=== PATIENT | female | born 1945 | race Caucasian/White ===

== ENCOUNTER 2016-09-18 22:59 | Inpatient (IN) | payer MEDICARE ==
[~2016-09-18] VITALS: Ht 162.6 cm; Wt 75.0 kg
[2016-09-18 22:59] VITALS: O2SAT 98
[2016-09-18] MEDS ORDERED: ceFAZolin 2 GM PREMIX 50 ML ONE (23:01)
[2016-09-18] MEDS ORDERED: ceFAZolin 2 GM PREMIX 50 ML IV STA (23:16)
[2016-09-18] MEDS ORDERED: DIPHTH/TETANUS/ACEL PERTUSSIS (BOOSTER) 0.5 ML VIAL/PFS IM ONE (23:16)
[2016-09-18 23:22] LABS: AUTOMATED NEUTROPHIL # 4.6 TH/MM3 (1.8-7.7); BASOPHIL # 0.1 TH/MM3 (0-0.2); BASOPHIL % 1.2 % (0.0-2.0); EOSINOPHIL # 0.2 TH/MM3 (0-0.4); EOSINOPHIL % 2.5 % (0.0-4.0); HEMATOCRIT 42.9 % (35.0-46.0); HEMO FLAGS DIFF FINAL; LYMPH % 30.9 % (9.0-44.0); LYMPHOCYTE # 2.5 TH/MM3 (1.0-4.8); MEAN CELL VOLUME 94.8 FL (80.0-100.0); MEAN CORPUSCULAR HEMOGLOBIN 32.9 PG (27.0-34.0); MEAN CORPUSCULAR HGB CONC 34.7 % (32.0-36.0); MONO % 8.1 % (0.0-8.0); NEUT % 57.3 % (16.0-70.0); PLATELET COUNT 240 TH/MM3 (150-450); RED BLOOD COUNT 4.52 MIL/MM3 (4.00-5.30); RED CELL DISTRIBUTION WIDTH 13.9 % (11.6-17.2)
[2016-09-18 23:26] LABS: I-STAT POTASSIUM 3.8 MMOL/L (3.5-4.9)
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
[2016-09-18] MEDS ORDERED: MORPHINE SULFATE 4 MG/ML INJ IV PRN (23:30)
[2016-09-18] MEDS ORDERED: MAGNESIUM HYDROXIDE SUSP 30 ML CUP PO PRN (23:30)
[2016-09-18] MEDS ORDERED: SODIUM CHLORIDE 0.9% FLUSH 5 ML FLUSH IVF PRN (23:30)
[2016-09-18] MEDS ORDERED: CHLORHEXIDINE GLUCONATE 2 % 1 PACK (2 CLOTHS) TOP PRN (23:30)
[2016-09-18] MEDS ORDERED: MISCELLANEOUS NURSING INFORMATION XX SCH (23:30)
[2016-09-18] MEDS ORDERED: ONDANSETRON HCL 4 MG/2 ML VIAL IV PRN (23:30)
[2016-09-18] MEDS ORDERED: MULTCAP2 PO (23:33)
[2016-09-18] MEDS ORDERED: ZANT150T2 PO (23:33)
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
[2016-09-18 23:38] LABS: APTT (PATIENT) 19.8 SEC (24.3-30.1); PROTHROMBIN TIME - PATIENT 11.4 SEC (9.8-11.6)
[2016-09-18 23:39] VITALS: BP 171/77; PULSE 73; RESP 20; TEMP 97.9; O2SAT 98
[2016-09-19 01:12] VITALS: BP 165/76; PULSE 78; RESP 20; TEMP 98; O2SAT 98
[2016-09-19 04:00] VITALS: BP 178/84; PULSE 88; RESP 20; TEMP 97.6; O2SAT 97
[2016-09-19] MEDS ORDERED: CHLORHEXIDINE GLUCONATE 2 % 1 PACK (2 CLOTHS) TOP SCH (04:00)
[2016-09-19 04:59] LABS: AUTOMATED NEUTROPHIL # 5.7 TH/MM3 (1.8-7.7); BASOPHIL % 0.3 % (0.0-2.0); EOSINOPHIL # 0.2 TH/MM3 (0-0.4); EOSINOPHIL % 1.9 % (0.0-4.0); HEMATOCRIT 38.4 % (35.0-46.0); HEMO FLAGS DIFF FINAL; LYMPH % 28.7 % (9.0-44.0); LYMPHOCYTE # 2.8 TH/MM3 (1.0-4.8); MEAN CELL VOLUME 95.3 FL (80.0-100.0); MEAN CORPUSCULAR HEMOGLOBIN 32.1 PG (27.0-34.0); MEAN CORPUSCULAR HGB CONC 33.7 % (32.0-36.0); MONO % 9.8 % (0.0-8.0); NEUT % 59.3 % (16.0-70.0); PLATELET COUNT 218 TH/MM3 (150-450); RED BLOOD COUNT 4.02 MIL/MM3 (4.00-5.30); RED CELL DISTRIBUTION WIDTH 13.5 % (11.6-17.2); WHITE BLOOD COUNT 9.6 TH/MM3 (4.0-11.0)
[2016-09-19 05:29] LABS: BICARBONATE 23.5 MEQ/L (21.0-32.0); POTASSIUM 3.7 MEQ/L (3.5-5.1)
[2016-09-19] MEDS: ENOXAPARIN SODIUM 30 MG/0.3 ML SYRINGE SQ SCH ×2 (05:58→17:44)
[2016-09-19 08:00] VITALS: BP 127/66; PULSE 81; RESP 17; TEMP 98.6; O2SAT 93
[2016-09-19] MEDS: DOCUSATE SODIUM 50 MG/SENNA 8.6 MG TAB PO SCH ×2 (08:29→20:11)
[2016-09-19] MEDS ORDERED: PANTOPRAZOLE SODIUM 40 MG VIAL IV PUSH SCH (09:00)
[2016-09-19 12:00] VITALS: BP 121/67; PULSE 80; RESP 16; TEMP 98.8; O2SAT 94
[2016-09-19 16:00] VITALS: BP 142/73; PULSE 83; RESP 17; TEMP 98.6; O2SAT 92
[2016-09-19] MEDS ORDERED: SENN1TAB PO (17:44)
[2016-09-19] MEDS ORDERED: MILKSUS PO (17:44)
[2016-09-19] MEDS ORDERED: ENOX30P SQ (17:44)
[2016-09-19] MEDS ORDERED: OXYC-392 PO (17:44)
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
[2016-09-19 20:00] VITALS: BP 124/74; PULSE 72; RESP 16; TEMP 98; O2SAT 92
[2016-09-19] MEDS ORDERED: MAGNESIUM HYDROXIDE SUSP 30 ML CUP PO SCH (21:00)
== END 2016-09-19 21:58 | DRG 605 ==
LOC: NEPI 22:59 → NEDA 23:39 → EDBD 23:39 → N07B 09-19 01:30
PROVIDERS: ADMIT Surgery Trauma Surgery; ATTEND Surgery Trauma Surgery
DX: S71.132A Puncture wound without foreign body, left thigh, initial encounter (principal); Z96.652 Presence of left artificial knee joint; Y93.89 Activity, other specified; Y92.9 Unspecified place or not applicable
CPT/HCPCS: 71010; 73552; 80048; 82435; 82565; 82947; 84132; 84295; 84520; 85025; 85610; 85730; 86850; 86900; 86901; 90471; 90715; 94150; 96374; 99291; C9113; G0390; J0690; J1650; J3010

== ENCOUNTER 2016-09-19 18:22 | Inpatient (IN) | payer MEDICARE ==
[~2016-09-19] VITALS: Ht 162.6 cm; Wt 68.4 kg
[~2016-09-19 18:22] MED LIST: ENOX30P SQ; MILKSUS PO; MULTCAP2 PO; OXYC-392 PO; SENN1TAB PO; ZANT150T2 PO
[2016-09-19 22:21] VITALS: BP 148/70; PULSE 80; RESP 14; TEMP 98.5; O2SAT 96
[2016-09-19] MEDS ORDERED: MAGNESIUM HYDROXIDE SUSP 30 ML CUP PO PRN (22:45)
[2016-09-19] MEDS ORDERED: LORazepam 0.5 MG TAB age > 65 yrs PO PRN (22:45)
[2016-09-19] MEDS ORDERED: ALUMINUM/MAGNESIUM/SIMETH 30 ML CUP PO PRN (22:45)
[2016-09-19] MEDS ORDERED: ACETAMINOPHEN 325 MG TAB PO PRN (22:45)
[2016-09-19] MEDS ORDERED: LORazepam 2 MG/ML VIAL - age > 65 yrs IM PRN (22:45)
[2016-09-19] MEDS: ENOXAPARIN SODIUM 30 MG/0.3 ML SYRINGE SQ SCH (23:00)
[2016-09-20 04:57] VITALS: BP 108/57; PULSE 75; RESP 18; TEMP 98.6; O2SAT 98
[2016-09-20] MEDS: NICOTINE 21 MG/24 HR PATCH T-DERMAL SCH (08:35)
[2016-09-20] MEDS: DOCUSATE SODIUM 50 MG/SENNA 8.6 MG TAB PO SCH ×2 (08:36→21:17)
[2016-09-20] MEDS: ENOXAPARIN SODIUM 30 MG/0.3 ML SYRINGE SQ SCH ×2 (11:00→21:17)
[2016-09-20 16:00] VITALS: BP 127/69; PULSE 80; RESP 18; TEMP 98; O2SAT 95
[2016-09-20 18:03] VITALS: BP 127/69; PULSE 80; RESP 18; TEMP 98; O2SAT 95
[2016-09-20] MEDS: REMOVE OLD NICOTINE PATCH T-DERMAL SCH (21:00)
[2016-09-21 05:03] VITALS: BP 124/61; PULSE 76; RESP 16; TEMP 98.3; O2SAT 96
[2016-09-21] MEDS: DOCUSATE SODIUM 50 MG/SENNA 8.6 MG TAB PO SCH ×2 (08:44→20:46)
[2016-09-21] MEDS: NICOTINE 21 MG/24 HR PATCH T-DERMAL SCH (08:47)
[2016-09-21] MEDS: ENOXAPARIN SODIUM 30 MG/0.3 ML SYRINGE SQ SCH ×2 (11:00→20:49)
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
[2016-09-21 19:42] VITALS: BP 169/83; PULSE 79; TEMP 98.6; O2SAT 98
[2016-09-21] MEDS: REMOVE OLD NICOTINE PATCH T-DERMAL SCH (20:46)
[2016-09-22 05:54] VITALS: BP 125/60; PULSE 66; RESP 18; TEMP 97.9; O2SAT 96
[2016-09-22] MEDS: NICOTINE 21 MG/24 HR PATCH T-DERMAL SCH (09:00)
[2016-09-22] MEDS: DOCUSATE SODIUM 50 MG/SENNA 8.6 MG TAB PO SCH ×2 (09:03→21:09)
[2016-09-22] MEDS: ENOXAPARIN SODIUM 30 MG/0.3 ML SYRINGE SQ SCH ×2 (11:00→23:18)
--- NOTE | 2016-09-22 14:58 | HHI.PYPN ---
Subjective Remarks Ms. Fox remains rather depressed and desponded. She is willing to start antidepressant medication as prescribed by this physician. Due to her advanced age, this physician feels that low dose Prozac is her best option and she was given informed consent. Review of Systems ROS Limitations: Clinical Condition Except as stated in HPI: all other systems reviewed are Neg Objective Alert: Yes [place]: Person, Place, Date, Situation Mood: Calm, Depressed Affect: Restricted Memory Intact: Immediate, Recent, Remote Hallucinations: Other Delusions: No Delusion Type: Other Suicidal: Ideation Homicidal: Ideation Insight/Judgement Impaired. Vitals/IOs Vital Signs Date Time Temp Pulse Resp B/P Pulse Ox O2 Delivery O2 Flow Rate FiO2 09/22/16 05:54 97.9 66 18 125/60 96 Assessment & Plan Problem List: (1) Major depression, single episode ICD Code: F32.9 Assessment & Plan Estimated LOS: 3 days days. This physician plans to start the patient on Prozac 5 mg by mouth daily. After to further days of evaluating and observing her for positive benefits and ability to tolerate side effects, it is anticipated she'll be discharged on Wednesday. She wants to return home where she has very limited support but she is competent to make this decision. Justification for Cont. Inpt. Starting new antidepressant therapy. Problem Qualifiers (1) Major depression, single episode: Qualified Code: F32.2 - Severe single current episode of major depressive disorder, without psychotic features Roel Monreal MD Sep 22, 2016 14:58
[2016-09-22 17:21] VITALS: BP 118/67; PULSE 67; RESP 18; TEMP 98; O2SAT 94
[2016-09-22] MEDS: REMOVE OLD NICOTINE PATCH T-DERMAL SCH (21:00)
[2016-09-22] MEDS: FLUoxetine HCL LIQUID 20 MG/5 ML CUP PO SCH (21:53)
[2016-09-23 06:16] VITALS: BP 128/68; PULSE 74; RESP 18; TEMP 97.9; O2SAT 96
[2016-09-23] MEDS: NICOTINE 21 MG/24 HR PATCH T-DERMAL SCH (08:37)
[2016-09-23] MEDS: DOCUSATE SODIUM 50 MG/SENNA 8.6 MG TAB PO SCH ×2 (08:37→20:24)
--- NOTE | 2016-09-23 10:31 | HHI.PYPN ---
Subjective Remarks Patient continues to be sad and anxious but tolerated low dose Prozac perfectly well last night. She remained seclusive and admits to some feelings of hopelessness and helplessness. This physician continues to feel she remains at high risk for harming herself because her circumstances have not changed. Review of Systems ROS Limitations: Clinical Condition Except as stated in HPI: all other systems reviewed are Neg Objective Alert: Yes [place]: Person, Place, Date, Situation Mood: Anxious, Depressed Affect: Restricted Memory Intact: Immediate, Recent, Remote Hallucinations: Other Delusions: No Delusion Type: Other Suicidal: Ideation Homicidal: Ideation Insight/Judgement Impaired. Vitals/IOs Vital Signs Date Time Temp Pulse Resp B/P Pulse Ox O2 Delivery O2 Flow Rate FiO2 09/23/16 06:16 97.9 74 18 128/68 96 Assessment & Plan Problem List: (1) Major depression, single episode ICD Code: F32.9 Assessment & Plan Estimated LOS: 2 more days will continue with current dose of Prozac for tonight and increase to 10 mg tomorrow. Justification for Cont. Inpt. Remains depressed and at high risk for harming herself. High lethality of previous suicide attempt. Just starting antidepressant therapy and want to gauge tolerance. Problem Qualifiers (1) Major depression, single episode: Qualified Code: F32.2 - Severe single current episode of major depressive disorder, without psychotic features Roel Monreal MD Sep 23, 2016 10:31
[2016-09-23] MEDS: ENOXAPARIN SODIUM 30 MG/0.3 ML SYRINGE SQ SCH ×2 (11:00→22:53)
[2016-09-23 19:29] VITALS: BP_SYST 136; BP_SYST 139; BP_DIAS 77; PULSE 71; PULSE 98; RESP 18; TEMP 98; O2SAT 98
[2016-09-23] MEDS: FLUoxetine HCL LIQUID 20 MG/5 ML CUP PO SCH (20:23)
[2016-09-23] MEDS: REMOVE OLD NICOTINE PATCH T-DERMAL SCH (21:00)
[2016-09-24 06:11] VITALS: BP 126/12; PULSE 63; RESP 16; TEMP 98.1; O2SAT 97
[2016-09-24] MEDS: DOCUSATE SODIUM 50 MG/SENNA 8.6 MG TAB PO SCH ×2 (08:51→20:20)
[2016-09-24] MEDS: NICOTINE 21 MG/24 HR PATCH T-DERMAL SCH (08:51)
[2016-09-24] MEDS: ENOXAPARIN SODIUM 30 MG/0.3 ML SYRINGE SQ SCH ×2 (10:02→10:54)
--- NOTE | 2016-09-24 14:49 | HHI.PYPN ---
Subjective Remarks Patient tolerating low dose Prozac rather well. Will change to 10 mg pills. Review of Systems ROS Limitations: Intoxication Except as stated in HPI: all other systems reviewed are Neg Objective Alert: Yes [place]: Person, Place, Date, Situation Mood: Calm Affect: Restricted Memory Intact: Immediate, Recent, Remote Hallucinations: Other Delusions: No Delusion Type: Other Suicidal: Ideation Homicidal: Ideation Insight/Judgement Improved. Vitals/IOs Vital Signs Date Time Temp Pulse Resp B/P Pulse Ox O2 Delivery O2 Flow Rate FiO2 09/24/16 06:11 98.1 63 16 126/12 97 Intake and Output 09/23/16 09/23/16 09/24/16 08:00 16:00 00:00 Intake Total 240 ml 360 ml Balance 240 ml 360 ml Assessment & Plan Problem List: (1) Major depression, single episode ICD Code: F32.9 Assessment & Plan Estimated LOS: 1 days titrate Prozac to 10 mg daily. Justification for Cont. Inpt. Titrating medication. Problem Qualifiers (1) Major depression, single episode: Qualified Code: F32.2 - Severe single current episode of major depressive disorder, without psychotic features Roel Monreal MD Sep 24, 2016 14:49
[2016-09-24 18:57] VITALS: BP 146/71; PULSE 72; RESP 16; TEMP 96.9; O2SAT 96
[2016-09-24] MEDS: REMOVE OLD NICOTINE PATCH T-DERMAL SCH (20:52)
[2016-09-24] MEDS ORDERED: FLUoxetine HCL 10 MG CAP PO SCH (21:00)
[2016-09-25 06:00] VITALS: BP 119/66; PULSE 55; RESP 18; TEMP 97.7; O2SAT 97
[2016-09-25] MEDS: NICOTINE 21 MG/24 HR PATCH T-DERMAL SCH (09:00)
[2016-09-25] MEDS: DOCUSATE SODIUM 50 MG/SENNA 8.6 MG TAB PO SCH (09:00)
[2016-09-25] MEDS: ENOXAPARIN SODIUM 30 MG/0.3 ML SYRINGE SQ SCH (10:47)
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
[2016-09-25] MEDS ORDERED: FLUO-1 PO (13:04)
[2016-09-25] MEDS ORDERED: OXYC-392 PO (13:04)
== END 2016-09-25 14:40 | disposition home or self-care (01) | DRG 881 ==
LOC: H260 18:22
PROVIDERS: ADMIT Psychiatry & Neurology Psychiatry; ATTEND Psychiatry & Neurology Psychiatry
DX: F32.9 Major depressive disorder, single episode, unspecified (principal); Z91.5 Personal history of self-harm
CPT/HCPCS: J1650